=== PATIENT | female | born 1965 | race Caucasian/White ===

== ENCOUNTER 2017-12-26 09:33 | Outpatient (CLI) | payer OTHER ==
--- NOTE | 2017-12-30 11:50 | MMO ---
BILATERAL DIGITAL SCREENING MAMMOGRAMS: Date: 12/26/17 HISTORY: 42-year-old female presents for digital screening mammogram. COMPARISON: 11/24/10, 07/08/13. FINDINGS: This patient's mammogram was interpreted with the assistance of computer-aided detection. Scattered areas of fibroglandular density are noted bilaterally. No direct or indirect evidence of ma lignancy. IMPRESSION: BIRADS 1: Negative Continue routine screening. POS: [place]
== END 2017-12-26 09:34 | disposition home or self-care (01) ==
LOC: SCSMAMMO 09:33
PROVIDERS: ATTEND Physician Assistant
DX: Z12.31 Encounter for screening mammogram for malignant neoplasm of breast (principal)
CPT/HCPCS: 77067